=== PATIENT | female | born 1975 | race American Indian/Alaskan Native ===

== ENCOUNTER 2021-06-05 11:47 | Emergency (ER) | payer MEDICAID ==
--- NOTE | 2021-06-05 12:56 | Emergency Department Report ---
ED General Adult HPI - General Chief complaint: High BP Stated complaint: BP ELEVATED X2 DAYS Time Seen by Provider: 06/05/21 12:49 Source: patient Mode of arrival: Ambulatory Limitations: No Limitations - History of Present Illness Initial comments: Patient is 45-year-old female with history of rheumatoid arthritis. Patient presented to the ER stating that her blood pressure is high. Patient showed me a reading of 136/84 2 days ago and her device is high and that alarmed her. Patient stated that she checked it again and it showed 146/92 and that got her worried and she want to come to be checked. Patient currently denying any headache, neck pain, chest pain, weakness numbness or tingling sensation. - Related Data Previous Rx's Medication Instructions Recorded Last Taken Type Acetaminophen [Acetaminophen TAB] 650 mg PO Q4H PRN #60 tablet 02/20/20 Unknown Rx Hydroxychloroquine [Plaquenil] 200 mg PO BID #20 tablet 02/20/20 Unknown Rx predniSONE [Deltasone] 20 mg PO QDAY #30 02/20/20 Unknown Rx Allergies Allergy/AdvReac Type Severity Reaction Status Date / Time No Known Allergies Allergy Verified 06/05/21 12:07 ED Review of Systems ROS: Stated complaint: BP ELEVATED X2 DAYS Other details as noted in HPI Comment: All other systems reviewed and negative Constitutional: denies: chills, fever Respiratory: denies: cough, shortness of breath, SOB with exertion Cardiovascular: denies: chest pain, palpitations Gastrointestinal: denies: abdominal pain, nausea, vomiting Musculoskeletal: denies: back pain Neurological: denies: headache, weakness, numbness, paresthesias, confusion, abnormal gait ED Past Medical Hx - Past Medical History Hx Arthritis: Yes (Rheumatoid) Additional medical history: CARPAL TUNNEL - Surgical History Additional Surgical History: T&A - Social History Smoking Status: Never Smoker Substance Use Type: Alcohol - Medications Home Medications: Home Medications Medication Instructions Recorded Confirmed Last Taken Type Acetaminophen [Acetaminophen TAB] 650 mg PO Q4H PRN #60 tablet 02/20/20 Unknown Rx Hydroxychloroquine [Plaquenil] 200 mg PO BID #20 tablet 02/20/20 Unknown Rx predniSONE [Deltasone] 20 mg PO QDAY #30 02/20/20 Unknown Rx ED Physical Exam - General Limitations: No Limitations General appearance: alert, in no apparent distress - Head Head exam: Present: atraumatic, normocephalic, normal inspection - Eye Eye exam: Present: normal appearance, PERRL - ENT ENT exam: Present: normal exam, normal orophraynx, mucous membranes moist - Neck Neck exam: Present: normal inspection, full ROM. Absent: tenderness, meningismus - Respiratory Respiratory exam: Present: normal lung sounds bilaterally - Cardiovascular Cardiovascular Exam: Present: regular rate, normal rhythm, normal heart sounds - GI/Abdominal GI/Abdominal exam: Present: soft, normal bowel sounds. Absent: distended, tenderness, guarding, rebound, rigid, organomegaly, mass, bruit, pulsatile mass, hernia - Extremities Exam Extremities exam: Present: normal inspection, full ROM, normal capillary refill. Absent: tenderness, pedal edema, joint swelling, calf tenderness - Back Exam Back exam: Present: normal inspection, full ROM. Absent: CVA tenderness (R), CVA tenderness (L) - Neurological Exam Neurological exam: Present: alert, oriented X3, CN II-XII intact, normal gait, reflexes normal. Absent: motor sensory deficit - Psychiatric Psychiatric exam: Present: normal mood - Skin Skin exam: Present: warm, intact, normal color ED Course Vital Signs 06/05/21 12:10 Temperature 98.7 F Pulse Rate 81 Respiratory 18 Rate Blood Pressure 149/93 O2 Sat by Pulse 98 Oximetry ED Medical Decision Making - Medical Decision Making Patient is 45-year-old female with history of rheumatoid arthritis. Patient presented to the ER stating that her blood pressure is high. Patient showed me a reading of 136/84 2 days ago and her device is high and that alarmed her. Patient stated that she checked it again and it showed 146/92 and that got her worried and she want to come to be checked. Patient currently denying any headache, neck pain, chest pain, weakness numbness or tingling sensation. Blood pressure in the ER is 149/92. There is no emergency at this moment. Patient advised to follow-up with her primary care physician in the next 2 to 3 days and to return to the ER she develop any new symptoms. Critical care attestation.: If time is entered above; I have spent that time in minutes in the direct care of this critically ill patient, excluding procedure time. ED Disposition Clinical Impression: Hypertension Disposition: DC-01 TO HOME OR SELFCARE Is pt being admited?: No Condition: Stable Instructions: Hypertension (ED), Hypertension, Adult, [facility] Referrals: PRIMARY CARE, [Referring] - 3-5 Days
[2021-06-05 14:00] VITALS: BP 146/89
== END 2021-06-05 14:00 | disposition home or self-care (01) ==
LOC: ED 11:47
DX: I10 Essential (primary) hypertension (principal); M19.90 Unspecified osteoarthritis, unspecified site; Z79.899 Other long term (current) drug therapy
CPT/HCPCS: 99282

== ENCOUNTER 2021-07-15 03:27 | Emergency (ER) | payer MEDICAID ==
--- NOTE | 2021-07-15 10:42 | Electrocardiograph Report ---
[facility] Test Date: 2021-07-15 Test Time: 03:42:06 Pat Name: VIRGINIA DE LUNA Department: Room: Gender: F Director Design: FIORELLA : 1975 Requested By: SONYA REYNOSO III Order Number: [id number] Reading MD: Jerry Snider Measurements Intervals [place] Rate: 89 P: 67 DE: 162 QRS: -12 QRSD: 86 T: 49 QT: 377 QTc: 459 Interpretive Statements Sinus rhythm [id number] No previous ECG available for comparison Electronically Signed On 07-15-2021 10:42:02 EDT by Jerry Snider
== END 2021-07-15 03:35 | disposition left against medical advice (07) ==
LOC: ED 03:27
DX: R07.9 Chest pain, unspecified (principal); Z53.21 Procedure and treatment not carried out due to patient leaving prior to being seen by health care provider
CPT/HCPCS: 93005